=== PATIENT | female | born 1990 | race Caucasian/White ===

== ENCOUNTER 2016-09-20 00:36 | Emergency (ER) | payer BC ==
[2016-09-20] MEDS ORDERED: NS 0.9% 1000 ML* 1,000 ML IV ONE (01:21)
--- NOTE | 2016-09-20 02:06 | ED ---
Mitchell Daniel Billy, scribed for Ricardo Toth MD on 09/20/16 at 0134 . Palpitations / Dysrhythmia - HPI Summary HPI Summary: Patient is a 25 year-old female coming to [facility] presenting with intermittent palpitations earlier today. Patient states that she was getting sweeping the kitchen floor of her home when she began to feel a rapid, racing heart rate and diffuse numbness. The symptoms resolved spontaneously but returned, at which point the patient decided to come to the ED for further evaluation. She denies any similar episodes. She denies any significant caffeine use, but had some chocolate several hours ago. - History of Current Complaint Chief Complaint: EDGeneral Time Seen by Provider: 09/20/16 01:16 Hx Obtained From: Patient Onset/Duration: Sudden Onset Timing: Intermittent Episodes Lasting: Severity Initially: Moderate Severity Currently: Moderate Character: Fast Aggravating: Nothing Alleviating: Nothing PMH/Surg Hx/FS Hx/Imm Hx Respiratory History: Denies: Hx Asthma GI History: Reports: Hx Irritable Bowel Infectious Disease History: No Infectious Disease History: Denies: Traveled Outside the [place] in Last 30 Days - Family History Known Family History: Positive: Diabetes - grandmother, Other - HLD - Social History Alcohol Use: Occasionally Hx Substance Use: No Substance Use Type: Reports: None Hx Tobacco Use: No Smoking Status (MU): Never Smoked Tobacco Review of Systems Positive: Palpitations Positive: Numbness All Other Systems Reviewed And Are Negative: Yes Physical Exam Triage Information Reviewed: Yes Vital Signs On Initial Exam: Initial Vitals Temp Pulse Resp BP Pulse Ox 99.5 F 109 18 147/91 99 09/20/16 01:05 09/20/16 01:05 09/20/16 01:05 09/20/16 01:05 09/20/16 01:05 Vital Signs Reviewed: Yes Appearance: Positive: Well-Appearing, No Pain Distress Skin: Positive: Warm Head/Face: Positive: Normal Head/Face Inspection Eyes: Positive: TAVARES ENT: Positive: Hearing grossly normal Neck: Positive: Supple Respiratory/Lung Sounds: Positive: Clear to Auscultation, Breath Sounds Present Cardiovascular: Positive: RRR Abdomen Description: Positive: Nontender, No Organomegaly, Soft Bowel Sounds: Positive: Present Musculoskeletal: Positive: Strength/ROM Intact Neurological: Positive: Sensory/Motor Intact, Alert, Oriented to Person Place, Time, CN Intact II-III, Normal Gait Psychiatric: Positive: Affect/Mood Appropriate Diagnostics - Vital Signs Vital Signs Temp Pulse Resp BP Pulse Ox 09/20/16 01:05 99.5 F 109 18 147/91 99 - Laboratory Result Diagrams: 09/20/16 02:15 09/20/16 02:15 Lab Statement: Any lab studies that have been ordered have been reviewed, and results considered in the medical decision making process. Re-Evaluation - Re-Evaluation First Eval Re-Evaluation Time: 02:58 Change: Improved Course/Dx - Diagnoses Provider Diagnoses: Palpitations Discharge - Discharge Plan Condition: Stable Disposition: HOME Patient Education Materials: Palpitations (ED) Referrals: [facility] TC Gandhi [Medical Doctor] - The documentation as recorded by the Mitchell rivero Billy accurately reflects the service I personally performed and the decisions made by me, Ricardo Toth MD.
[2016-09-20 02:35] LABS: Hematocrit 38 % (35-47); Hemoglobin 12.7 g/dl (12.0-16.0); Mean Corpuscular HGB Conc 33 g/dl (31-36); Mean Corpuscular Hemoglobin 30 pg (27-31); Mean Corpuscular Volume 90 fL (80-97); Mean Platelet Volume 9 um3 (7.4-10.4); Red Blood Count 4.26 10^6/ul (4.0-5.4); Red Cell Distribution Width 12 % (10.5-15)
[2016-09-20 02:47] LABS: BUN/Creatinine Ratio 13.7 (8-20); Calcium 9.5 mg/dL (8.6-10.3); EGFR African American 127.1 (>60); EGFR Non-African American 98.8 (>60); Magnesium 1.8 mg/dL (1.9-2.7); Potassium 3.5 mmol/L (3.5-5.0); Total Bilirubin 0.4 mg/dL (0.2-1.0)
[2016-09-20 03:14] LABS: TSH (Thyroid Stimulating Horm) 1.55 mcIU/mL (0.34-5.60)
[2016-09-20 04:03] VITALS: BP 127/81
== END 2016-09-20 04:01 | disposition home or self-care (01) ==
LOC: ED 00:36
DX: R00.2 Palpitations (principal); R20.0 Anesthesia of skin
CPT/HCPCS: 36415; 80053; 83605; 83735; 84443; 84484; 85025; 99282

== ENCOUNTER → 2018-07-07 15:23 | Emergency (ER) | payer BC, OTHER ==
[~2018-07-07 15:23] MED LIST: Iohexol 300* (CONTRAST) 10 ML SDV IV ONE; Morphine VIAL* 4 MG/ML VIAL (1 ml vial) IV ONE; Morphine VIAL* 4 MG/ML VIAL (1 ml vial) IV PRN
[2018-07-07 16:14] LABS: ABS Basophils 0 10^3/ul (0-0.2); ABS Eosinophils 0 10^3/ul (0-0.6); ABS Lymphocytes 2.2 10^3/ul (1.0-4.8); ABS Monocytes 0.2 10^3/ul (0-0.8); ABS Neutrophils 4.3 10^3/ul (1.5-7.7); ABS Nucleated RBC 0 10^3/ul; Eosinophil % 0.3 %; Hematocrit 41 % (35-47); Hemoglobin 13.9 g/dl (12.0-16.0); Lymphocyte % 32.2 %; Mean Corpuscular HGB Conc 34 g/dl (31-36); Mean Corpuscular Hemoglobin 31 pg (27-31); Mean Corpuscular Volume 90 fL (80-97); Mean Platelet Volume 8.1 fL (7.4-10.4); Nucleated Red Blood Cells % 0; Platelet Count 236 10^3/ul (150-450); Red Blood Count 4.49 10^6/ul (4.00-5.40); Red Cell Distribution Width 13 % (10.5-15); White Blood Count 6.7 10^3/ul (3.5-10.8)
[2018-07-07 16:33] LABS: EGFR Non-African American 95.6 (>60)
--- NOTE | 2018-07-07 18:44 | ED ---
Abdominal Pain/Female - HPI Summary HPI Summary: Patient is a 27 y/o F presenting to ED with complaints of RLQ abdominal pain since this morning at around 1100. Pain is described as dull and stabbing and is noted to have worsened since onset. She states that pain was exacerbated by walking and movement. Radiation of pain to back is noted as well. Patient went to [facility], was sent to ED for further workup. She reports PMHx of IBS. N /V/D and fever is denied. Chills and decreased appetite are endorsed. Patient notes that she was hospitalized two years ago for possible colon infection. She notes that she had colonoscopy done at the time, results returned inconclusive. No similar episodes since then are noted. Patient is on control, reports irregular periods. PMHx of ovarian cysts is noted. On triage, pain is rated 7/ 10. Home medications and allergies are reviewed. - History of Current Complaint Chief Complaint: EDAbdPain Stated Complaint: ABD PAIN Time Seen by Provider: 07/07/18 18:36 Hx Obtained From: Patient Onset/Duration: Lasting Hours - since this morning, Still Present Timing: Hours Severity Initially: Moderate Severity Currently: Severe - 7/10 Pain Intensity: 7 Pain Scale Used: 0-10 Numeric - 7/10 Location: Discrete At: RLQ Radiates: Yes Radiates to: Back Character: Sharp, Dull Aggravating Factor(s): Movement, Other: - ambulation Alleviating Factor(s): Nothing Associated Signs and Symptoms: Positive: Back Pain, Decreased Appetite, Other: - POSITIVE - CHILLS. Negative: Fever, Nausea, Vomiting, Diarrhea Allergies/Adverse Reactions: Allergies Allergy/AdvReac Type Severity Reaction Status Date / Time metaxalone [From Skelaxin] Allergy Hives Verified 07/07/18 15:29 PMH/Surg Hx/FS Hx/Imm Hx Respiratory History: Denies: Hx Asthma GI History: Reports: Hx Irritable Bowel Infectious Disease History: No Infectious Disease History: Denies: Traveled Outside the [place] in Last 30 Days - Family History Known Family History: Positive: Diabetes - grandmother, Other - HLD - Social History Alcohol Use: Occasionally Hx Substance Use: No Substance Use Type: Reports: None Hx Tobacco Use: No Smoking Status (MU): Never Smoked Tobacco Review of Systems Positive: Chills. Negative: Fever Positive: Abdominal Pain, Other - POSITIVE - DECREASED APPETITE . Negative: Vomiting, Diarrhea, Nausea Positive: Other - POSITIVE - BACK PAIN All Other Systems Reviewed And Are Negative: Yes Physical Exam - Summary Physical Exam Summary: Appearance: Well-appearing, Well-nourished, lying in bed comfortably Skin: Warm, dry, no obvious rash Eyes: sclera anicteric, no conjunctival pallor ENT: mucous membranes moist, pharynx appears normal Neck: Supple, nontender Respiratory: Clear to auscultation, no signs of respiratory distress Cardiovascular: Normal S1, S2. No murmurs. Normal distal pulses in tibial and radial bilaterally. Abdomen: Soft, mild RLQ tenderness with deep palpation, no rebound or guarding, normal active bowel sounds present Musculoskeletal: Normal, Strength/ROM Intact Neurological: A&Ox3, awake and alert, mentation is normal, speech is fluent and appropriate Psychiatric: affect is normal, does not appear anxious or depressed Triage Information Reviewed: Yes Vital Signs On Initial Exam: Initial Vitals Temp Pulse Resp BP Pulse Ox 98.7 F 99 16 158/95 100 07/07/18 15:25 07/07/18 15:25 07/07/18 15:25 07/07/18 15:25 07/07/18 15:25 Vital Signs Reviewed: Yes Diagnostics - Vital Signs Vital Signs Temp Pulse Resp BP Pulse Ox 07/07/18 18:18 99.9 F 85 16 145/75 100 07/07/18 15:25 98.7 F 99 16 158/95 100 - Laboratory Lab Results: Lab Results 07/07/18 07/07/18 Range/Units 15:48 15:51 WBC 6.7 (3.5-10.8) 10^3/ul RBC 4.49 (4.00-5.40) 10^6/ul Hgb 13.9 (12.0-16.0) g/dl Hct 41 (35-47) % MCV 90 (80-97) fL MCH 31 (27-31) pg MCHC 34 (31-36) g/dl RDW 13 (10.5-15) % Plt Count 236 (150-450) 10^3/ul MPV 8.1 (7.4-10.4) fL Neut % (Auto) 63.5 % Lymph % (Auto) 32.2 % [place] % (Auto) 3.5 % Eos % (Auto) 0.3 % Baso % (Auto) 0.5 % Absolute Neuts (auto) 4.3 (1.5-7.7) 10^3/ul Absolute Lymphs (auto) 2.2 (1.0-4.8) 10^3/ul Absolute Monos (auto) 0.2 (0-0.8) 10^3/ul Absolute Eos (auto) 0 (0-0.6) 10^3/ul Absolute Basos (auto) 0 (0-0.2) 10^3/ul Absolute Nucleated RBC 0 10^3/ul Nucleated RBC % 0 Sodium 139 (135-145) mmol/L Potassium 4.0 (3.5-5.0) mmol/L Chloride 104 (101-111) mmol/L Carbon Dioxide 26 (22-32) mmol/L Anion Gap 9 (2-11) mmol/L BUN 7 (6-24) mg/dL Creatinine 0.74 (0.51-0.95) mg/dL Est GFR ( Amer) 115.7 (>60) Est GFR (Non-Af Amer) 95.6 (>60) BUN/Creatinine Ratio 9.5 (8-20) Glucose 93 (70-100) mg/dL Calcium 10.1 (8.6-10.3) mg/dL Total Bilirubin 0.50 (0.2-1.0) mg/dL AST 21 (13-39) U/L ALT 13 (7-52) U/L Alkaline Phosphatase 39 (34-104) U/L Total Protein 7.8 (6.4-8.9) g/dL Albumin 4.7 (3.2-5.2) g/dL Globulin 3.1 (2-4) g/dL Albumin/Globulin Ratio 1.5 (1-3) Lipase < 10 L (11.0-82.0) U/L Beta HCG, Quant < 0.60 mIU/mL Result Diagrams: 07/07/18 15:51 07/07/18 15:48 Lab Statement: Any lab studies that have been ordered have been reviewed, and results considered in the medical decision making process. - CT ABD/PEL CT CT Interpretation Completed By: Radiologist Summary of CT Findings: CT ABD/PEL IMPRESSION: No evidence of obstructive uropathy or appendicitis. No adnexal cysts or free fluid in the pelvis. THIS REPORT WAS REVIEWED BY ED PHYSICIAN. Abdominal Pain Fem Course/Dx - Course Course Of Treatment: Patient is a 27 y/o F presenting to ED with complaints of RLQ abdominal pain since this morning at around 1100. Pain is described as dull and stabbing and is noted to have worsened since onset. She states that pain was exacerbated by walking and movement. Radiation of pain to back is noted as well. Patient went to [facility], was sent to ED for further workup. She reports PMHx of IBS. N/V/D and fever is denied. Chills and decreased appetite are endorsed. Patient notes that she was hospitalized two years ago for possible colon infection. She notes that she had colonoscopy done at the time, results returned inconclusive. No similar episodes since then are noted. Patient is on control, reports irregular periods. PMHx of ovarian cysts is noted. On physical exam, abdomen is Soft, mild RLQ tenderness with deep palpation, no rebound or guarding, normal active bowel sounds present. Labs showed lipase < 10, Beta HCG < 0.6. During ED course, patient received morphine. CT ABD/PEL IMPRESSION: No evidence of obstructive uropathy or appendicitis. No adnexal cysts or free fluid in the pelvis. Patient was discharged to home, patient is agreeable with discharge. - Diagnoses Differential Diagnosis: Positive: Appendicitis, Ectopic , Irritable Bowel Syndrome, Ovarian Cyst, Pelvic Inflammatory Disease, Urinary Tract Infection Provider Diagnoses: Acute abdominal pain Discharge - Sign-Out/Discharge Documenting (check all that apply): Patient Departure - discharge - Discharge Plan Condition: Good Disposition: HOME Patient Education Materials: Acute Abdominal Pain (ED) [facility]errals: [facility] [Outside] - Billing Disposition and Condition Condition: GOOD Disposition: Home - Attestation Statements Document Initiated by Dedrick: Yes Documenting Scribe: VINEET ROSE Provider For Whom Dedrick is Documenting (Include Credential): NEGRO ANAYA MD Scribreyna Attestation: VINEET Daniel , mirellaibed for NEGRO ANAYA MD on 07/08/18 at 1022. Scribe Documentation Reviewed: Yes Provider Attestation: The documentation as recorded by the VINEET rivero accurately reflects the service I personally performed and the decisions made by , NEGRO ANAYA MD Status of Scribe Document: Viewed
[2018-07-07 22:50] VITALS: BP 137/77
[2018-07-07 22:53] LABS: Urine Appearance Clear; Urine Blood Negative (Negative); Urine Color Straw; Urine Ketones Trace (Negative); Urine Protein Negative (Negative); Urine Specific Gravity 1.051 (1.010-1.030); Urine Urobilinogen Negative (Negative)
== END | disposition home or self-care (01) ==
LOC: ED 15:23
DX: R10.31 Right lower quadrant pain (principal); R68.83 Chills (without fever); M54.9 Dorsalgia, unspecified; Z32.02 Encounter for pregnancy test, result negative; Z88.8 Allergy status to other drugs, medicaments and biological substances
CPT/HCPCS: 36415; 74177; 80053; 81003; 83690; 84702; 85025; 96374; 99282; J2270; Q9967